=== PATIENT | female | born 1950 | race Caucasian/White ===

== ENCOUNTER 2016-12-27 06:40 | Inpatient (IN) ==
[2016-12-21 18:49] LABS: Basophils # (Auto) 0 K/mcL (0.0-0.3); Basophils % (Auto) 0.5 % (0.0-2.0); Eosinophils # (Auto) 0.1 K/mcL (0.0-0.7); Eosinophils % (Auto) 1.9 % (0.0-7.0); Granulocytes % (Auto) 67.5 % (38.0-78.0); Lymphocytes # (Auto) 1.7 K/mcL (1.5-4.8); Lymphocytes % (Auto) 23.5 % (15.5-49.0); Mean Cell Volume 86.2 fL (80.0-100.0); Mean Corpuscular HGB Conc 32.5 g/dL (31.0-36.0); Monocytes # (Auto) 0.5 K/mcL (0.1-0.9); Monocytes % (Auto) 6.6 % (1.0-12.0); Platelet Count 406 K/mcL (140-440); RBC 4.73 M/mcL (4.00-5.20)
[2016-12-27] MEDS ORDERED: HYDROmorphone 2 MG/ML SYRINGE IV ONE (08:00)
[2016-12-27] MEDS ORDERED: ROCURONIUM 10 MG/ML ML IV ONE (08:00)
[2016-12-27] MEDS ORDERED: PHENYLEPHRINE 10 MG/ML VIAL IV ONE (08:00)
[2016-12-27] MEDS ORDERED: LIDOCAINE HCL/PF 100 MG/5 ML SYRINGE IV ONE (08:00)
[2016-12-27] MEDS ORDERED: CEFOXITIN IV SCH (08:00)
[2016-12-27] MEDS ORDERED: ONDANSETRON 4 MG/2 ML VIAL IV ONE (08:00)
[2016-12-27] MEDS ORDERED: KETAMINE 100 MG/ML ML IV ONE (08:00)
[2016-12-27] MEDS ORDERED: MIDAZOLAM 5 MG/5 ML VIAL IV ONE (08:00)
[2016-12-27] MEDS ORDERED: PROPOFOL 200 MG/20 ML VIAL IV ONE (08:00)
[2016-12-27] MEDS ORDERED: GLYCOPYRROLATE 0.2 MG/ML VIAL IV ONE (08:00)
[2016-12-27] MEDS ORDERED: SODIUM CHLORIDE 0.9% IV SCH (08:00)
[2016-12-27] MEDS ORDERED: ePHEDrine 50 MG/ML AMPUL IV PRN (09:37)
[2016-12-27] MEDS ORDERED: LABETALOL HCL 20 MG/4 ML SYRINGE IV PRN (09:37)
[2016-12-27] MEDS ORDERED: BENZOCAINE/MENTHOL 1 LOZENGE PO PRN (09:37)
[2016-12-27] MEDS ORDERED: IPRATROPIUM/ALBUTEROL 3 ML AMPUL.NEB NEB PRN ×2 (09:37→15:34)
[2016-12-27] MEDS ORDERED: METHOCARBAMOL 1,000 MG/10 ML VIAL IV PRN (09:37)
[2016-12-27] MEDS ORDERED: ONDANSETRON 4 MG/2 ML VIAL IV PRN (09:37)
[2016-12-27] MEDS ORDERED: MEPERIDINE 25 MG/ML SYRINGE IV PRN (09:37)
[2016-12-27] MEDS ORDERED: LACTATED RINGERS 1,000 ML IV SCH (09:45)
[2016-12-27] MEDS ORDERED: MAGNESIUM HYDROXIDE 30 ML ORAL.SUSP PO PRN (09:57)
--- NOTE | 2016-12-27 10:11 | Brief Operative Note ---
Date of procedure: 12/27/16 Pre-op diagnosis: tcca right kidney Post-op diagnosis: same Procedure: radical mright nephroureterectomy Grafts/Implants: No Anesthesia: GETA Findings: see note Complications: none Surgeon: Tavares Young Estimated blood loss (cc): 300 Specimens Removed/Pathology: other (kidney, ureter) Condition: stable Disposition: PACU
[2016-12-27] MEDS ORDERED: NON FORMULARY MEDICATION 1 DOSE MISCELL (Epinephrine [Epipen] 0.3 MG) IM SCH (10:15)
[2016-12-27] MEDS: fentaNYL 100 MCG/2 ML VIAL IV PRN ×4 (10:15→10:30)
[2016-12-27] MEDS: HYDROmorphone 2 MG/ML SYRINGE IV PRN ×4 (10:30→10:45)
--- NOTE | 2016-12-27 10:56 | Operative Note ---
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 PROCEDURE: Right radical nephroureterectomy. SURGEON: Tavares Young MD MARKETING PRODUCTION SPECIALIST: Stephon Olivera MD INDICATION: The patient is a 66-year-old lady who has had gross blood in her urine. CT scan shows malformation the upper pole of the kidney and ureteroscopy confirmed this was a transitional cell carcinoma. She presents now for removal. PROCEDURE: The patient was identified and consent was signed. She was given general anesthesia, placed in supine position, and prepped and draped in a standard fashion. A subcostal incision was made and this was carried down to the fat and the fascia with electrocautery. We were able to open up the muscles and then were able to enter the peritoneal space. The liver appeared normal. Gallbladder appeared normal. The bowel was inspected and this was also normal. Placing retractors, we were able to identify the white line of Toldt. This was divided sharply and the bowel was packed medially. We were then able to see the kidney. Gerota's fascia was opened and we were able to see the hilum. At this point, we were able to tie off the vein and the artery. I was pleased with the overall appearance and there was slight blood loss. We did not take the adrenal gland, was able to go around Gerota's fascia and remove the entire kidney. We then followed the ureter down to the true pelvis. At this point, a Rendon incision was made in the right lower quadrant. We were then able to enter the abdominal cavity and identify the placement of the ureter. This was then grasped as it crossed over the pelvic brim and we were able to follow this down to the bladder. We then dissected the ureter free of the bladder, making sure that we took the cuff of the bladder. The bladder was then closed with a 2-0 Vicryl. The rest of the attachments of the ureter were removed and the kidney and ureter were removed in toto. We then irrigated the wound upper and lower. There was no bleeding. I was pleased with the overall appearance. We placed the bowel back in its normal location, closed the fascial layers individually with a 0 Prolene. I was pleased with the overall appearance. The wound was irrigated as was the abdominal wall prior to closure. We then closed the skin with maria dolores. Sterile dressings were applied. The patient was awoken and taken to recovery room in stable condition. She tolerated the procedure well. Estimated blood loss was 200 mL. Needle and sponge count were correct. GARO:roger Job ID: [id number] Doc ID: [id number] Tavares Young MD
[2016-12-27] MEDS ORDERED: NALOXONE HCL 0.4 MG/ML VIAL ONE (11:14)
[2016-12-27] MEDS ORDERED: NALOXONE HCL 0.4 MG/ML VIAL IV ONE (11:16)
[2016-12-27] MEDS: ACETAMINOPHEN 1,000 MG/100 ML BOTTLE IV SCH ×3 (11:45→23:26)
[2016-12-27] MEDS: SUCRALFATE 1 GM/10 ML ORAL.SUSP PT SCH ×2 (13:32→17:22)
[2016-12-27] MEDS: GABAPENTIN 300 MG CAPSULE PO SCH ×3 (13:32→20:56)
[2016-12-27] MEDS: DEXTROSE 5%-NS 1,000 ML IV SCH (13:43)
[2016-12-27] MEDS: 0.9 % SODIUM CHLORIDE 10 ML SYRINGE IV SCH ×2 (13:45→23:13)
[2016-12-27] MEDS: METHOCARBAMOL 500 MG TABLET PO PRN (15:02)
[2016-12-27] MEDS: cefOXitin 1 GM in DEXTROSE 5% IN WATER 50 ML IV SCH ×2 (16:09→23:24)
[2016-12-27] MEDS: FLUTICASONE/SALMETEROL 250/50 INHALER #14 INH SCH (20:55)
[2016-12-27] MEDS: busPIRone 5 MG TABLET PO SCH (20:56)
[2016-12-27] MEDS: clonazePAM 0.5 MG TABLET PO SCH (20:56)
[2016-12-27] MEDS: lamoTRIgine 100 MG TABLET PO SCH (20:56)
[2016-12-27] MEDS: oxyCODONE/APAP 5/325MG TABLET PO PRN (20:57)
[2016-12-27] MEDS: ASPIRIN 81 MG TAB.CHEW PO SCH (20:59)
[2016-12-28] MEDS: METHOCARBAMOL 500 MG TABLET PO PRN (00:01)
[2016-12-28] MEDS: DEXTROSE 5%-NS 1,000 ML IV SCH ×3 (01:11→19:05)
[2016-12-28] MEDS: oxyCODONE/APAP 5/325MG TABLET PO PRN (05:06)
[2016-12-28 05:31] LABS: Mean Cell Volume 86.8 fL (80.0-100.0); Mean Corpuscular HGB Conc 32.4 g/dL (31.0-36.0); Mean Corpuscular Hemoglobin 28.1 pg (26.0-34.0); Platelet Count 234 K/mcL (140-440); RBC 3.43 M/mcL (4.00-5.20)
[2016-12-28 05:53] LABS: Blood Urea Nitrogen 15 mg/dl (8-23)
[2016-12-28] MEDS: ACETAMINOPHEN 1,000 MG/100 ML BOTTLE IV SCH (05:55)
[2016-12-28] MEDS: PANTOPRAZOLE 40 MG TABLET PO SCH (06:45)
[2016-12-28] MEDS: SUCRALFATE 1 GM/10 ML ORAL.SUSP PT SCH ×3 (06:45→17:00)
[2016-12-28] MEDS: busPIRone 5 MG TABLET PO SCH ×2 (07:32→20:46)
[2016-12-28] MEDS: lamoTRIgine 100 MG TABLET PO SCH ×2 (07:33→20:45)
--- NOTE | 2016-12-28 07:41 | General Surgery Progress Note ---
Subjective Patient reports: still having pain Narrative: Note initiated : 12/28/16 at 7:38 am Service Date, if different from initiated Date: [] Patient: Lisa Begum a 66 y/o F admitted on 12/27/16 for Nephroureterctomy. Chief Complaint: []Postop day #1 Patient does complain of pain. The nurses report that the pain is controlled, but when talking to the patient she states she is having pain. She hasn't been able to sleep and every time she moves she has pain. I had a discussion concerning the TECHNICAL ASST and feel this should be started and the patient can control her pain when she is having it. I've asked her to go easy on the fluids until she starts passing flatus. Her wound is clean and dry and the bandages are intact. Her hematocrit is down slightly but this may be secondary to dilution, we did not lose that much blood in the surgery. Plan: Ambulate in the halls today. Check CBC in the morning and see what we can do about her pain control. Objective Temp Pulse Resp BP Pulse Ox 99.3 F 76 18 94/50 98 12/28/16 04:00 12/27/16 12:00 12/28/16 06:35 12/28/16 06:35 12/28/16 06:35 - Additional Data Intake & Output - Last 24 hours: Intake & Output 12/26/16 12/27/16 12/28/16 12/29/16 05:59 05:59 05:59 05:59 Intake Total 6370 / 6370 Output Total 1820 / 1820 Balance 4550 / 4550 Weight 149 lb 3.2 oz - Labs 12/28/16 04:40 12/28/16 04:40 Diabetes panel 12/28/16 Range/Units 04:40 Sodium 137 (133-145) mmol/L Potassium 4.3 (3.3-5.1) mmol/L Chloride 101 (96-108) mmol/L Carbon Dioxide 27 (22-30) mmol/L BUN 15 (8-23) mg/dl Creatinine 1.6 H (0.6-1.1) mg/dl Glucose 115 H (70-105) mg/dL Calcium 8.5 L (8.6-10.4) mg/dl Calcium panel 12/28/16 Range/Units 04:40 Calcium 8.5 L (8.6-10.4) mg/dl Pituitary panel 12/28/16 Range/Units 04:40 Sodium 137 (133-145) mmol/L Potassium 4.3 (3.3-5.1) mmol/L Chloride 101 (96-108) mmol/L Carbon Dioxide 27 (22-30) mmol/L BUN 15 (8-23) mg/dl Creatinine 1.6 H (0.6-1.1) mg/dl Glucose 115 H (70-105) mg/dL Calcium 8.5 L (8.6-10.4) mg/dl Adrenal panel 12/28/16 Range/Units 04:40 Sodium 137 (133-145) mmol/L Potassium 4.3 (3.3-5.1) mmol/L Chloride 101 (96-108) mmol/L Carbon Dioxide 27 (22-30) mmol/L BUN 15 (8-23) mg/dl Creatinine 1.6 H (0.6-1.1) mg/dl Glucose 115 H (70-105) mg/dL Calcium 8.5 L (8.6-10.4) mg/dl Assessment and Plan - Time Spent With Patient Total time spent is greater than 50% in coordination of care (as documented) at patient's floor/unit and/or counseling patient:
[2016-12-28] MEDS: FLUTICASONE/SALMETEROL 250/50 INHALER #14 INH SCH ×2 (08:39→20:45)
[2016-12-28] MEDS: cefOXitin 1 GM in DEXTROSE 5% IN WATER 50 ML IV SCH (08:40)
[2016-12-28] MEDS: clonazePAM 0.5 MG TABLET PO SCH ×2 (08:51→20:45)
[2016-12-28] MEDS: GABAPENTIN 300 MG CAPSULE PO SCH ×4 (08:52→20:45)
[2016-12-28] MEDS: 0.9 % SODIUM CHLORIDE 10 ML SYRINGE IV SCH ×4 (08:58→20:46)
[2016-12-28] MEDS ORDERED: ESCITALOPRAM 20 MG TABLET PO SCH (09:00)
[2016-12-28] MEDS ORDERED: TIOTROPIUM BROMIDE 18 MCG INHALANT INH SCH (09:00)
[2016-12-28] MEDS: ASPIRIN 81 MG TAB.CHEW PO SCH (20:45)
[2016-12-29] MEDS: DEXTROSE 5%-NS 1,000 ML IV SCH ×4 (05:01→20:30)
[2016-12-29] MEDS: 0.9 % SODIUM CHLORIDE 10 ML SYRINGE IV SCH ×3 (05:11→23:16)
[2016-12-29 05:34] LABS: Mean Cell Volume 87.2 fL (80.0-100.0); Mean Corpuscular HGB Conc 32.4 g/dL (31.0-36.0); Mean Corpuscular Hemoglobin 28.3 pg (26.0-34.0); Platelet Count 230 K/mcL (140-440); RBC 3.32 M/mcL (4.00-5.20); Red Cell Distribution Width 13.9 % (11.5-14.5)
--- NOTE | 2016-12-29 06:59 | General Surgery Progress Note ---
Subjective Patient reports: pain is less Narrative: Note initiated : 12/29/16 at 6:58 am Service Date, if different from initiated Date: [] Patient: Lisa Begum 66 y/o F admitted on 12/27/16 for Nephroureterctomy. Chief Complaint: []pod #2 patient improved will transfer to floor d/c stein will follow. dressing clean and dry Objective Temp Pulse Resp BP Pulse Ox 98.2 F 92 H 17 125/59 96 12/29/16 04:00 12/29/16 04:05 12/29/16 05:40 12/29/16 05:40 12/29/16 05:40 - Additional Data Intake & Output - Last 24 hours: Intake & Output 12/27/16 12/28/16 12/29/16 12/30/16 05:59 05:59 05:59 05:59 Intake Total 6370 / 6370 3090 / 3090 6 / 6 Output Total 1820 / 1820 2030 / 2030 Balance 4550 / 4550 1060 / 1060 6 / 6 Weight 149 lb 3.2 oz 153 lb 4.8 oz - Labs 12/29/16 04:35 12/28/16 04:40 Assessment and Plan - Time Spent With Patient Total time spent is greater than 50% in coordination of care (as documented) at patient's floor/unit and/or counseling patient:
[2016-12-29] MEDS: PANTOPRAZOLE 40 MG TABLET PO SCH (07:16)
[2016-12-29] MEDS: SUCRALFATE 1 GM/10 ML ORAL.SUSP PT SCH ×3 (07:57→16:53)
[2016-12-29] MEDS ORDERED: MAGNESIUM HYDROXIDE 30 ML ORAL.SUSP PO PRN ×2 (08:33→20:51)
[2016-12-29] MEDS: GABAPENTIN 300 MG CAPSULE PO SCH ×3 (08:53→20:28)
[2016-12-29] MEDS: FLUTICASONE/SALMETEROL 250/50 INHALER #14 INH SCH ×2 (09:15→20:40)
[2016-12-29] MEDS: TIOTROPIUM BROMIDE 18 MCG INHALANT INH SCH (09:15)
[2016-12-29] MEDS: lamoTRIgine 100 MG TABLET PO SCH ×2 (09:26→20:29)
[2016-12-29] MEDS: clonazePAM 0.5 MG TABLET PO SCH ×2 (09:27→23:16)
[2016-12-29] MEDS: ESCITALOPRAM 20 MG TABLET PO SCH (09:27)
[2016-12-29] MEDS: busPIRone 5 MG TABLET PO SCH ×2 (09:28→20:28)
[2016-12-29] MEDS: ASPIRIN 81 MG TAB.CHEW PO SCH (20:41)
[2016-12-29] MEDS: METHOCARBAMOL 500 MG TABLET PO PRN (20:43)
[2016-12-29] MEDS ORDERED: FLEETS ADULT ENEMA PR PRN (20:51)
[2016-12-29] MEDS ORDERED: BISACODYL 10 MG SUPP.RECT PR PRN (20:51)
[2016-12-29] MEDS: DOCUSATE SODIUM 100 MG CAPSULE PO SCH (20:53)
[2016-12-30] MEDS: DEXTROSE 5%-NS 1,000 ML IV SCH ×3 (01:25→17:33)
[2016-12-30] MEDS: IPRATROPIUM/ALBUTEROL 3 ML AMPUL.NEB NEB PRN ×2 (03:17→10:43)
[2016-12-30] MEDS: 0.9 % SODIUM CHLORIDE 10 ML SYRINGE IV SCH ×3 (05:35→21:32)
[2016-12-30] MEDS: SUCRALFATE 1 GM/10 ML ORAL.SUSP PT SCH ×3 (07:09→17:33)
[2016-12-30] MEDS: PANTOPRAZOLE 40 MG TABLET PO SCH (07:09)
[2016-12-30] MEDS: oxyCODONE/APAP 5/325MG TABLET PO PRN ×2 (07:13→15:40)
[2016-12-30] MEDS ORDERED: BISACODYL 10 MG SUPP.RECT PR ONE (07:15)
--- NOTE | 2016-12-30 07:19 | General Surgery Progress Note ---
Subjective Patient reports: feels better Narrative: Note initiated : 12/30/16 at 7:17 am Service Date, if different from initiated Date: [] Patient: Lisa Begum 66 y/o F admitted on 12/27/16 for Nephroureterctomy. Chief Complaint: [] Postop day #3 Patient states the pain is better controlled. She is able to urinate without a catheter. She is still not pass flatus but we'll advance her diet slowly and Hep-Lock her IV. Dulcolax suppository was ordered today. I will check labs tomorrow and will follow up from there. Otherwise, she is doing well. Objective Temp Pulse Resp BP Pulse Ox 98.6 F 103 H 18 146/70 95 12/30/16 06:40 12/30/16 03:17 12/30/16 06:40 12/30/16 06:40 12/30/16 06:40 - Additional Data Intake & Output - Last 24 hours: Intake & Output 12/28/16 12/29/16 12/30/16 12/31/16 05:59 05:59 05:59 05:59 Intake Total 6370 / 6370 3140 / 3140 2946 / 2946 Output Total 1820 / 1820 2030 / 2030 1640 / 1640 Balance 4550 / 4550 1110 / 1110 1306 / 1306 Weight 149 lb 3.2 oz 153 lb 4.8 oz 153 lb - Labs 12/29/16 04:35 12/28/16 04:40 Assessment and Plan - Time Spent With Patient Total time spent is greater than 50% in coordination of care (as documented) at patient's floor/unit and/or counseling patient:
[2016-12-30] MEDS: DOCUSATE SODIUM 100 MG CAPSULE PO SCH ×2 (08:53→20:41)
[2016-12-30] MEDS: ESCITALOPRAM 20 MG TABLET PO SCH (08:53)
[2016-12-30] MEDS: clonazePAM 0.5 MG TABLET PO SCH ×2 (08:53→22:30)
[2016-12-30] MEDS: GABAPENTIN 300 MG CAPSULE PO SCH ×3 (08:53→20:40)
[2016-12-30] MEDS: lamoTRIgine 100 MG TABLET PO SCH ×2 (08:55→20:41)
[2016-12-30] MEDS: busPIRone 5 MG TABLET PO SCH ×2 (08:56→20:41)
[2016-12-30] MEDS: TIOTROPIUM BROMIDE 18 MCG INHALANT INH SCH (08:58)
[2016-12-30] MEDS: FLUTICASONE/SALMETEROL 250/50 INHALER #14 INH SCH ×2 (08:59→20:41)
[2016-12-30] MEDS: METHOCARBAMOL 500 MG TABLET PO PRN ×2 (11:57→20:41)
[2016-12-30] MEDS: ASPIRIN 81 MG TAB.CHEW PO SCH (20:40)
[2016-12-31] MEDS: DEXTROSE 5%-NS 1,000 ML IV SCH ×2 (01:27→02:43)
[2016-12-31] MEDS: 0.9 % SODIUM CHLORIDE 10 ML SYRINGE IV SCH (05:24)
[2016-12-31 05:53] LABS: Mean Cell Volume 86.7 fL (80.0-100.0); Mean Corpuscular HGB Conc 33.4 g/dL (31.0-36.0); Platelet Count 260 K/mcL (140-440); RBC 3.06 M/mcL (4.00-5.20)
[2016-12-31] MEDS: SUCRALFATE 1 GM/10 ML ORAL.SUSP PT SCH (07:27)
[2016-12-31] MEDS: PANTOPRAZOLE 40 MG TABLET PO SCH (07:27)
[2016-12-31] MEDS: GABAPENTIN 300 MG CAPSULE PO SCH (08:38)
[2016-12-31] MEDS: lamoTRIgine 100 MG TABLET PO SCH (08:38)
[2016-12-31] MEDS: busPIRone 5 MG TABLET PO SCH (08:38)
[2016-12-31] MEDS: clonazePAM 0.5 MG TABLET PO SCH (08:38)
[2016-12-31] MEDS: ESCITALOPRAM 20 MG TABLET PO SCH (08:38)
[2016-12-31] MEDS: DOCUSATE SODIUM 100 MG CAPSULE PO SCH (08:38)
[2016-12-31] MEDS: IPRATROPIUM/ALBUTEROL 3 ML AMPUL.NEB NEB PRN (08:48)
[2016-12-31] MEDS: FLUTICASONE/SALMETEROL 250/50 INHALER #14 INH SCH (09:24)
[2016-12-31] MEDS: TIOTROPIUM BROMIDE 18 MCG INHALANT INH SCH (09:25)
[2016-12-31] MEDS: oxyCODONE/APAP 5/325MG TABLET PO PRN (10:02)
--- NOTE | 2016-12-31 10:29 | General Surgery Progress Note ---
Subjective Patient reports: feels better Narrative: Note initiated : 12/31/16 at 10:28 am Service Date, if different from initiated Date: [] Patient: Lisa Begum a 66 y/o F admitted on 12/27/16 for Nephroureterctomy. Chief Complaint: [] Postop day #4 Patient doing well. She did have a bowel movement and is feeling much better. Her pain is controlled. There is slight serous leakage from the inferior wound but this is decreased. Her hematocrit is a proximally 27 and she is asymptomatic. I will place her on iron. Otherwise, she is doing well and we will discharge from the hospital. We'll follow up in 2 days for staple removal and check a CBC. I have answered all her questions. Pathology is pending. Objective Temp Pulse Resp BP Pulse Ox 98.6 F 80 12 118/63 91 12/31/16 06:21 12/31/16 08:49 12/31/16 08:49 12/31/16 06:21 12/31/16 07:27 - Additional Data Intake & Output - Last 24 hours: Intake & Output 12/29/16 12/30/16 12/31/16 01/01/17 05:59 05:59 05:59 05:59 Intake Total 3140 / 3140 2946 / 2946 3807 / 3807 600 / 600 Output Total 2029 / 2029 1640 / 1640 300 / 300 Balance 1110 / 1110 1306 / 1306 3807 / 3807 300 / 300 Weight 153 lb 4.8 oz 153 lb 154 lb - Labs 12/31/16 05:00 12/28/16 04:40 Assessment and Plan - Time Spent With Patient Total time spent is greater than 50% in coordination of care (as documented) at patient's floor/unit and/or counseling patient:
--- NOTE | 2017-01-02 09:12 | Discharge Summary ---
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 PROCEDURE DONE: Right radical nephroureterectomy. PATHOLOGY: Pending. INDICATION: The patient is a 66-year-old lady who had gross blood in the urine. CT scan and ureteroscopy demonstrated that there was a tumor in the upper pole of the kidney which was consistent with transitional cell carcinoma of the kidney. She presents now for removal. For the rest of the History and Physical, please see dictation. HOSPITAL COURSE: The patient did well postoperatively. Her pain was controlled. She was advanced through her diet and is now tolerating a regular diet. Hematocrit has gone down to about 27, but she is asymptomatic and is on iron medication. I would keep her on this. Otherwise, her wounds are clean and dry, and there is no evidence of infection. The patient is ready for discharge to home. DISCHARGE MEDICATIONS: 1. Preoperative medications. 2. Percocet 5/325 mg one to two tabs q. 4-6 hours p.r.n. for pain. PLAN: We will plan to follow up with her in 3 days to remove her maria dolores and also check a CBC at that time. Written instructions were given. Kayla Job ID: [id number] Doc ID: [id number] Tavares Young MD
--- NOTE | 2017-01-02 11:57 | Surgical Pathology Report ---
HISTOLOGY SPECIMEN MICROSCOPIC DIAGNOSIS KIDNEY AND URETER, RIGHT, NEPHROURETERECTOMY: -- INVASIVE PAPILLARY UROTHELIAL CARCINOMA WITH THE FOLLOWING FEATURES (SEE COMMENT): - TUMOR SITE: RENAL PELVIS. - TUMOR FOCALITY: UNIFOCAL. - TUMOR SIZE: 2.9 cm IN GREATEST DIMENSION. - HISTOLOGIC GRADE: HIGH GRADE. - MICROSCOPIC TUMOR EXTENSION: TUMOR INVADES THE MUSCULARIS PROPRIA OF THE RENAL PELVIS AND PROXIMAL URETER, AND SUPERFICIALLY INVADES THE RENAL MEDULLA. - LYMPH-VASCULAR INVASION: NOT IDENTIFIED. - MARGINS: SOFT TISSUE, URETERAL AND VASCULAR MARGINS UNINVOLVED BY IN SITU OR INVASIVE CARCINOMA. - LYMPH NODES: NONE SUBMITTED. - PATHOLOGIC STAGE: pT3Nx. - SEE SUMMARY CANCER DATA FOR DETAILS. COMMENT: The case is reviewed along with the patient's prior kidney biopsy ([id number]; 12/08/2016). The biopsy fragments consist are of a papillary urothelial neoplasm with low grade cytologic features. Extensive histologic examination of the mass in this excision specimen confirms predominantly low grade features. However, there are patchy areas of high grade cytologic atypia with absent maturation, nuclear pleomorphism and increased mitoses. Foci of muscularis propria invasion are seen in the ureter and pelvis, and superficial renal parenchyma invasion is present in the renal medulla. Invasion is represented by an inflammatory reaction to invasive nests and associated stromal fibrotic changes. Overall, the cytomorphology and extent of disease best characterize this lesion as an invasive high grade papillary urothelial carcinoma with a pathologic stage of pT3Nx. Final staging requires clinical and radiographic correlation. SUMMARY CANCER DATA: Specimen: Kidney and ureter. Procedure: Nephroureterectomy. Specimen Laterality: Right. Tumor Focality: Unifocal. Histologic Type: Papillary urothelial carcinoma, invasive. Histologic Grade: High grade. Microscopic Tumor Extension: Tumor invades the muscularis propria of the renal pelvis and proximal ureter, and superficially invades the renal medulla. Lymph-vascular Invasion: Not identified. Margins: Uninvolved by in situ or invasive carcinoma. Lymph Nodes: None submitted. Pathologic Stage: pT3Nx. PROCEDURAL IMPRESSION Transitional cell carcinoma. GROSS DESCRIPTION Received in formalin labeled right kidney and ureter, is a nephrectomy specimen with an intact kidney and section of attached ureter with minimal attached fat. The kidney by itself weighs 124 grams and measures 4.5 x 5.5 x 10.0 cm. The attached segment of ureter is 17.0 cm long with a midpoint diameter of 1.0 cm. There is a small amount of yellow-holder adipose tissue attached to the ureter. The distal end of the ureter has three metallic maria dolores in place. There are several metallic maria dolores in place on the vasculature in the renal hilum. The vessels are short. On sectioning, there is a friable pale holder mass within the mid aspect of the upper pole. This mass measures 2.9 x 2.2 x 2.0 cm. On sectioning, the mass extends into the calices and the proximal end of the ureter. This appears to extend 0.8 cm into the actual ureter. Additional cross sections of the ureter do not reveal a mass. The mass is contained within the calices and abuts, but does not grossly infiltrate the parenchyma. No additional mass lesions are identified. The remaining renal parenchyma is unremarkable with well demarcated pyramids and cortex. The cortex is up to 1.5 cm thick. An adrenal is not included with this specimen. Shuttler Car sections are submitted as follows: A1 - ureter margin (distal); A2 - mid ureter; A3 - proximal aspect of ureter; A4 - vessels; A5 - mass and proximal ureter; A6 - mass; A7 - mass and proximal ureter; A8 - mass; A9-A10 - random kidney sections; A11-A13 - additional mass with renal parenchyma at pelvis. (RAD:sln) Electronically Signed by: Keny Arzate M.D.
== END 2016-12-31 11:20 | disposition home or self-care (01) | DRG 657 ==
LOC: MEDSUR 06:40 → ICU 12:02 → MEDSUR 12-29 11:39